=== PATIENT | female | born 1935 | race Caucasian/White ===

== ENCOUNTER 2016-06-19 04:58 | Inpatient (IN) | payer MEDICARE, OTHER ==
--- NOTE | ~2016-06-19 | DS ---
Discharge Summary [facility] [address] [place]. [address] NAME: JESSICA DUEÑAS : 37 STATUS : DIS IN PAT#: [id number] AGE: 80 ADM/REG DATE : 06/19/16 MR#: [id number] REPORT SERV DATE: 06/22/16 DICTATED BY: EDITH SMITH DATE: 06/21/16 REPORT STATUS : Draft TRANSCRIBED BY: MODL DATE: 06/21/16 ADMISSION DATE: 06/19/2016 DISCHARGE DATE: 06/21/2016 HISTORY OF PRESENT ILLNESS: The patient is a 80-year-old female with a history of hypertension and diabetes type 2, who presented to the emergency room with a complaint of nausea and vomiting. Was noted to have positive Hemoccult studies in the emergency room and admitted for further evaluation. For further details, please refer to H and P dictated by Dr. Fletcher on 06/20/2016. HOSPITAL COURSE: Upon admission to the hospital, the patient was admitted under Hospitalist Service. GI was consulted to assist in management. During her hospital course, her symptoms resolved. Her nausea and vomiting resolved. Also, noted that her hemoglobin remained steady, so her Protonix was subsequently discontinued. Status post discontinuation of Protonix, the patient has remained hemodynamically stable with no evidence of further GI bleed. The patient was evaluated by GI and per their evaluation, otherwise, no need for active intervention at this point, and the patient has been cleared from GI perspective for discharge. Given her hemodynamic stability, resolution of presenting complaint, and the patient's eagerness to go home, the patient will be discharged today. Plan has been discussed with the patient, who is agreeable with this plan. DISCHARGE DIAGNOSES: 1. Nausea and vomiting. 2. Hematemesis. 3. Diabetes type 2. 4. Hypertension. 5. Morbid obesity. DISCHARGE EXAM: GENERAL: The patient lying in bed, in no acute distress. Appears stated age. Speaking in full sentences. HEENT: Normocephalic, atraumatic. The patient is edentulous. NECK: Full symmetric. No thyromegaly noted. No JVD present. NECK: Full. CHEST: Nontender to palpation. No scars appreciated. CARDIOVASCULAR: Regular rate and rhythm. S1, S2. No murmurs, rubs, or gallops. LUNGS: Anterior lung banegas clear to auscultation bilaterally. ABDOMEN: Obese. Positive bowel sounds. Nontender. Nondistended. EXTREMITIES: No cyanosis, no clubbing, no edema. NEUROLOGIC: Alert and oriented x3. DISCHARGE MEDICATIONS: Atorvastatin 40 mg p.o. at bedtime, carvedilol 3.125 mg p.o. twice a day, insulin Levemir 30 units subcu at bedtime, insulin aspart 10 units subcu p.r.n. for blood glucose greater than 400, pantoprazole 40 mg p.o. before breakfast, glucagon 1 mg IM p.r.n. fasting blood sugar less than 70, metformin 500 mg p.o. daily, nitroglycerin 0.4 mg sublingual p.r.n., Zofran 4 mg p.o. q.6 hours p.r.n., albuterol inhalation q.4 hours p.r.n. while awake, gabapentin 300 mg p.o. at bedtime, Januvia 100 mg p.o. at breakfast, furosemide Discharge Summary [address] [address] NAME: JESSICA DUEÑAS : 37 STATUS : DIS IN PAT#: [id number] AGE: 80 ADM/REG DATE : 06/19/16 MR#: [id number] REPORT SERV DATE: 06/22/16 DICTATED BY: EDITH SMITH DATE: 06/21/16 REPORT STATUS : Draft TRANSCRIBED BY: EM DATE: 06/21/16 20 mg p.o. daily. IMAGING: Chest CT with contrast, impression, no airspace consolidation, mild cardiomegaly. CT pelvis, no evidence of acute intraabdominal or pelvic pathology. No GI tract obstruction. All contrast reaches rectum. There is sigmoid colonic diverticulosis and left sided colonic diverticulosis without diverticulitis. Moderate aortoiliac atherosclerosis without aneurysm. A splenorenal shunt is present. DISPOSITION: The patient will be discharged back to senior care facility. ACTIVITY: As tolerated. DIET: Diabetic low-salt diet. Greater than 30 minutes was spent on discharge planning, coordination of care, dictation of summary, and medication reconciliation. CINTHYA Edith Smith MD / [id number] CC: Edith Smith MD
--- NOTE | ~2016-06-19 | HP ---
History And Physical [place] [id number] [facility] [place]. [address] NAME: JESSICA DUEÑAS : 37 STATUS : ADM IN [facility]#: [id number] AGE: 80 ADM/REG DATE : 06/19/16 MR#: [id number] REPORT SERV DATE: 06/20/16 DICTATED BY: PAOLA LANGE DATE: 06/19/16 REPORT STATUS : Draft TRANSCRIBED BY: MODL DATE: 06/19/16 DATE OF ADMISSION: 06/19/2016 REASON FOR ADMISSION: Suspected "GI bleed," I have no guaiac. PRIMARY CARE DOCTOR: Appears to be unclear. HISTORY OF PRESENT ILLNESS: This is a 80-year-old female, with known history of diabetes in the past, whose A1c is 7.7, osteoarthritis, obesity. I have no home MAR in front of me. The patient has a surgical history of unclear breast surgery. The patient was recently discharged in September 2015. At that time, had rhabdo, POOL, a fall, likely debility, at that time was on insulin-dependent diabetes medications of Levemir, NovoLog. The patient comes in since Monday with having progressive abdominal pain, positive nausea, positive vomiting, unclear if it is bilious. At one time, subjectively was thought to have had hematemesis per the family, but then the patient adamantly denies that. The patient is unclear why she was thought to have had a GI bleed per the ED physician, may have had a guaiac, unclear if that was positive. The patient states positive chills. No fevers. Positive nausea. Positive vomiting. No diarrhea. Positive chest pain, more in the substernal and right left sternal border. Does seem to worsen after a meal in the past, although her appetite has been suppressed. Does seem to worsen when she lays more supine at home. Now, I see she does have a Hemoccult that was positive here in the emergency department, The patient has mild shortness of breath. PAST MEDICAL HISTORY: See above. PAST SURGICAL HISTORY: See above. ALLERGIES: NO KNOWN DRUG ALLERGIES. SOCIAL HISTORY: Does not drink, do drugs, or do alcohol. HOME MEDICATIONS: See MAR. We will continue what is relevant. I do not have a home MAR in front of me, but apparently in the past, she was on Januvia, Levemir, metformin, Glucotrol, Pepcid 20 b.i.d., Neurontin, Claritin, MiraLAX. FAMILY HISTORY: Hypertension in at least 1 parent. OBJECTIVE: VITAL SIGNS: 143/65, 97.9 temp. She also has 80 pulse, 16 respirations, 93% on History And Physical [address] [address] NAME: JESSICA DUEÑAS : 37 STATUS : ADM IN PAT#: [id number] AGE: 80 ADM/REG DATE : 06/19/16 MR#: [id number] REPORT SERV DATE: 06/20/16 DICTATED BY: PAOLA LANGE DATE: 06/19/16 REPORT STATUS : Draft TRANSCRIBED BY: EM DATE: 06/19/16 room air, now I see it at 89% though. GENERAL: No acute distress. HEENT: PERRLA. No scleral icterus. CARDIOVASCULAR: Regular rate and rhythm. No murmur. RESPIRATORY: Decreased breath sounds bibasilar with some very mild bibasilar crackles. ABDOMEN: Does seem to be obese, mildly distended, some periumbilical abdominal tenderness. No peritoneal signs. No rebound tenderness. EXTREMITIES: About 1+ pitting edema bilaterally. NEURO: She is A and O x4. GCS 15. PSYCH: Mildly anxious. LABS: Hemoglobin is 14.9 and guaiac is positive, 7.1 white count, 155,000 platelets, 3.5 potassium, 32 bicarb, 0.99 creatinine, 13 BUN, 140 sugar, 159 sugar. The patient had an EKG, and it is just normal sinus rhythm, no ischemic ST-T changes. Chest x-ray, I will get a CT. ASSESSMENT: 1. Subjective melena with guaiac positive stool. 2. Chest pain, worsened with supine and after heavy meal. 3. Dysphagia. 4. Chest pain radiating to the back, unclear if that was during hypertension. 5. History of diabetes. 6. History of osteoarthritis. 7. Borderline hypokalemia. PLAN: Admit this patient to myself. We will ask GI to become involved for dysphagia, possible odynophagia. With her chest pain that radiates to the back, we will elucidate with the CTA of the chest. CT abdomen and pelvis regarding his abdominal pain as well. Her hemoglobin is fairly elevated for GI bleed. As a result, I will transfuse if she rapidly drops less than 9 from over 14. We will trend her cardiac enzymes. Thankfully, her first troponin here is negative. I see no ischemic ST-T changes. As a result with the GI bleed, I will not give any aspirin at this time, but will give Lipitor as well as carvedilol low dose in case she bleeds as we would not want to cause any hypotension. We will place her on Protonix 80 IV x1, then Protonix drip after that as that was a continuation from the emergency department. Place on D5LR, n.p.o. except medications and ice chips. All questions were answered. It took well over 60 minutes to do. Reference [employer] and [employer]. Please see the rest of my orders. WSDenise/EM Paola Lange DO / [id number] History And Physical [address] [address] NAME: JESSICA DUEÑAS : 37 STATUS : ADM IN PAT#: [id number] AGE: 80 ADM/REG DATE : 06/19/16 MR#: [id number] REPORT SERV DATE: 06/20/16 DICTATED BY: PAOLA LANGE DATE: 06/19/16 REPORT STATUS : Draft TRANSCRIBED BY: MODL DATE: 06/19/16 CC: Paola Lange DO
[2016-06-19 04:50] LABS: BASOPHILS 0.7 %; BASOPHILS ABSOLUTE 0.05 10/3/uL (0.0-0.16); EOSINOPHILS 2.1 %; EOSINOPHILS ABSOLUTE 0.15 10/3/uL (0.0-0.53); IMMATURE GRANULOCYTES 0.1 %; IMMATURE GRANULOCYTES ABSOLUTE 0.01 10/3/uL (0.0-0.11); LYMPHOCYTES 43.2 %; LYMPHOCYTES ABSOLUTE 3.06 10/3/uL (0.67-4.30); MEAN CORPUSCULAR HEMOGLOB 29.7 pg (26.0-34.0); MEAN CORPUSCULAR VOLUME 92.8 fL (80-100); MEAN PLATELET VOLUME 12.9 fL (9.2-13.0); MONOCYTES 13.4 %; MONOCYTES ABSOLUTE 0.95 10/3/uL (0.21-1.20); NEUTROPHILS 40.5 %; NEUTROPHILS ABSOLUTE 2.87 10/3/uL (2.02-8.40); PLATELET COUNT 155 10/3/uL (150-400); RBC DISTRIBUTION WIDTH 14.1 % (12.0-16.0); WHITE BLOOD CELLS 7.1 10/3/uL (4.5-10.5)
[2016-06-19 04:54] LABS: HEMATOCRIT 46.5 % (36.0-48.0); HEMOGLOBIN 14.9 g/dL (12.0-16.0); MANUAL DIFF NO %; PROTIME (NOT ORD) 13.5 SEC (12.0-14.5); RED CELL COUNT 5.01 10/6/uL (4.0-5.6)
[~2016-06-19 04:58] MED LIST: ARTHRITIS OTC PO; ASPIRIN OTC PO; CLARIT10 PO; GLUCOPHAGE1000 MG PO; GLUCPH PO; GLUCXL10 PO; JANUVIA100 MG PO; LANTUS SC; LANTUSCART SC; MIRALAXPKT PO; MOBIC15 MG PO; NEUR300 PO; OTC EYE DROP OPH; PEP20 PO; TEARS NATURA OPH; VISINE TEARS15 ML OPH
[2016-06-19 05:05] LABS: ALBUMIN 3.2 G/DL (3.5-5.0); BUN (BLOOD UREA NITROGEN) 13 MG/DL (6-23); CALCIUM, SERUM 8.9 MG/DL (8.5-10.4); CREATININE 0.99 MG/DL (0.55-1.02); GFR AFRICAN AMERICAN 63 ML/MIN (>=60); GFR NON AFRICAN AMERICAN 54 ML/MIN (>=60); SGOT(AST) 25 U/L (5-40); SGPT(ALT) 28 U/L (5-65); SODIUM, SERUM 140 MMOL/L (135-148); TOTAL BILIRUBIN 0.5 MG/DL (0-1.2); TROPONIN I <0.02 NG/ML (<0.05)
[2016-06-19 05:10] LABS: A/G RATIO 0.8 (0.7-1.9); ALKALINE PHOSPHATASE 50 U/L (45-117); CHLORIDE, SERUM 97 MMOL/L (96-112); CO2 (CARBON DIOXIDE) 32 MMOL/L (24-34); GLOBULIN 3.8 G/DL (2.5-4.1); GLUCOSE, SERUM 159 MG/DL (60-99); POTASSIUM, SERUM 3.5 MMOL/L (3.5-5.3)
[2016-06-19] MEDS ORDERED: NEUR300 PO (10:14)
[2016-06-19] MEDS ORDERED: GLUCAGON IM (10:15)
[2016-06-19] MEDS ORDERED: JANUVIA100 MG PO (10:15)
[2016-06-19] MEDS ORDERED: L20 PO (10:16)
[2016-06-19] MEDS ORDERED: FORTAMET500 MG PO (10:16)
[2016-06-19] MEDS ORDERED: LEVEMIR SC (10:16)
[2016-06-19] MEDS ORDERED: ZANTAC 150 PO (10:17)
[2016-06-19] MEDS ORDERED: ZOFRAN4 PO (10:17)
[2016-06-19] MEDS ORDERED: NOVOLOG SC (10:17)
[2016-06-19 18:33] LABS: HEMOGLOBIN 13.1 g/dL (12.0-16.0)
[2016-06-19 18:35] LABS: HEMATOCRIT 41.2 % (36.0-48.0)
[2016-06-19 18:51] LABS: B NATRIURETIC PEPTIDE (BNP) 13.7 PG/ML (< 100.0)
[2016-06-19 18:58] LABS: PHOSPHORUS, SERUM 3.1 MG/DL (2.5-4.5); TROPONIN I <0.02 NG/ML (<0.05)
[2016-06-19 19:00] LABS: CPK 134 U/L (0-200)
[2016-06-19 19:44] LABS: PROCALCITONIN <0.05 ng/mL (<0.5)
[2016-06-19 22:06] LABS: CPK 148 U/L (0-200); TROPONIN I <0.02 NG/ML (<0.05)
[2016-06-19 22:08] LABS: CK-MB 3.2 NG/ML
[2016-06-20 01:57] LABS: BASOPHILS 0.6 %; BASOPHILS ABSOLUTE 0.04 10/3/uL (0.0-0.16); EOSINOPHILS 2.5 %; EOSINOPHILS ABSOLUTE 0.17 10/3/uL (0.0-0.53); HEMATOCRIT 43.5 % (36.0-48.0); HEMOGLOBIN 13.9 g/dL (12.0-16.0); IMMATURE GRANULOCYTES 0.1 %; IMMATURE GRANULOCYTES ABSOLUTE 0.01 10/3/uL (0.0-0.11); LYMPHOCYTES 47.9 %; LYMPHOCYTES ABSOLUTE 3.23 10/3/uL (0.67-4.30); MEAN CORPUSCULAR HEMOGLOB 29.8 pg (26.0-34.0); MEAN CORPUSCULAR VOLUME 93.3 fL (80-100); MEAN PLATELET VOLUME 12.9 fL (9.2-13.0); MONOCYTES 10.7 %; MONOCYTES ABSOLUTE 0.72 10/3/uL (0.21-1.20); NEUTROPHILS 38.2 %; NEUTROPHILS ABSOLUTE 2.58 10/3/uL (2.02-8.40); PLATELET COUNT 144 10/3/uL (150-400); RBC DISTRIBUTION WIDTH 14.2 % (12.0-16.0); RED CELL COUNT 4.66 10/6/uL (4.0-5.6); WHITE BLOOD CELLS 6.8 10/3/uL (4.5-10.5)
[2016-06-20 01:58] LABS: HEMATOCRIT 41.3 % (36.0-48.0); HEMOGLOBIN 13.3 g/dL (12.0-16.0)
[2016-06-20 02:01] LABS: MANUAL DIFF NO %
[2016-06-20 02:18] LABS: BUN (BLOOD UREA NITROGEN) 10 MG/DL (6-23); CALCIUM, SERUM 8.3 MG/DL (8.5-10.4); CHLORIDE, SERUM 105 MMOL/L (96-112); CO2 (CARBON DIOXIDE) 29 MMOL/L (24-34); CPK 150 U/L (0-200); GFR AFRICAN AMERICAN 81 ML/MIN (>=60); GFR NON AFRICAN AMERICAN 70 ML/MIN (>=60); GLUCOSE, SERUM 157 MG/DL (60-99); PHOSPHORUS, SERUM 2.7 MG/DL (2.5-4.5); POTASSIUM, SERUM 3.4 MMOL/L (3.5-5.3); SODIUM, SERUM 143 MMOL/L (135-148); TROPONIN I <0.02 NG/ML (<0.05)
[2016-06-20 02:21] LABS: CK-MB 3.1 NG/ML
[2016-06-20 09:17] LABS: HEMATOCRIT 40.6 % (36.0-48.0); HEMOGLOBIN 12.9 g/dL (12.0-16.0)
[2016-06-20 10:50] LABS: GLYCOHEMOGLOBIN (HbA1c) 12.2 % (4.7-6.1)
[2016-06-21 05:18] LABS: BASOPHILS 0.5 %; BASOPHILS ABSOLUTE 0.04 10/3/uL (0.0-0.16); EOSINOPHILS 2.2 %; EOSINOPHILS ABSOLUTE 0.17 10/3/uL (0.0-0.53); HEMOGLOBIN 11.9 g/dL (12.0-16.0); IMMATURE GRANULOCYTES 0.1 %; IMMATURE GRANULOCYTES ABSOLUTE 0.01 10/3/uL (0.0-0.11); LYMPHOCYTES 50.4 %; LYMPHOCYTES ABSOLUTE 3.98 10/3/uL (0.67-4.30); MEAN CORPUS HGB CONC 31.3 g/dL (32.0-36.0); MEAN CORPUSCULAR HEMOGLOB 28.6 pg (26.0-34.0); MEAN CORPUSCULAR VOLUME 91.3 fL (80-100); MEAN PLATELET VOLUME 13.6 fL (9.2-13.0); MONOCYTES 10.8 %; MONOCYTES ABSOLUTE 0.85 10/3/uL (0.21-1.20); NEUTROPHILS ABSOLUTE 2.85 10/3/uL (2.02-8.40); PLATELET COUNT 140 10/3/uL (150-400); RBC DISTRIBUTION WIDTH 14.1 % (12.0-16.0); RED CELL COUNT 4.16 10/6/uL (4.0-5.6); WHITE BLOOD CELLS 7.9 10/3/uL (4.5-10.5)
[2016-06-21 05:19] LABS: MANUAL DIFF NO %
[2016-06-21 05:44] LABS: BUN (BLOOD UREA NITROGEN) 9 MG/DL (6-23); CALCIUM, SERUM 7.9 MG/DL (8.5-10.4); CHLORIDE, SERUM 105 MMOL/L (96-112); CO2 (CARBON DIOXIDE) 27 MMOL/L (24-34); CREATININE 0.97 MG/DL (0.55-1.02); GFR AFRICAN AMERICAN 64 ML/MIN (>=60); GFR NON AFRICAN AMERICAN 56 ML/MIN (>=60); SODIUM, SERUM 142 MMOL/L (135-148)
[2016-06-21 05:51] LABS: GLUCOSE, SERUM 257 MG/DL (60-99); POTASSIUM, SERUM 4.6 MMOL/L (3.5-5.3)
== END 2016-06-21 13:14 | DRG 378 ==
LOC: ER 04:58 → ER/OF 10:32 → 2SO 12:35
PROVIDERS: Internal Medicine; Specialist
DX: K92.0 Hematemesis (principal); Z68.41 Body mass index [BMI] 40.0-44.9, adult; E11.9 Type 2 diabetes mellitus without complications; K21.9 Gastro-esophageal reflux disease without esophagitis; R13.10 Dysphagia, unspecified; M19.90 Unspecified osteoarthritis, unspecified site; E87.6 Hypokalemia; R11.2 Nausea with vomiting, unspecified; I10 Essential (primary) hypertension; E66.01 Morbid (severe) obesity due to excess calories; Z98.890 Other specified postprocedural states
CPT/HCPCS: 36415; 71010; 71260; 74177; 80048; 80053; 82550; 82553; 82962; 83036; 83605; 83735; 83880; 84100; 84145; 84443; 84484; 85014; 85018; 85025; 85610; 85730; 86850; 86900; 86901; 86920; 93005; 96374; 99285; A9270-GY; C9113; J2405

== ENCOUNTER 2016-08-01 09:01 | Emergency (ER) | payer MEDICARE, OTHER ==
[2016-08-01 08:46] LABS: BASOPHILS 0.1 %; BASOPHILS ABSOLUTE 0.01 10/3/uL (0.0-0.16); EOSINOPHILS 0.2 %; EOSINOPHILS ABSOLUTE 0.02 10/3/uL (0.0-0.53); HEMATOCRIT 44.5 % (36.0-48.0); HEMOGLOBIN 14.6 g/dL (12.0-16.0); IMMATURE GRANULOCYTES 0.4 %; IMMATURE GRANULOCYTES ABSOLUTE 0.03 10/3/uL (0.0-0.11); LYMPHOCYTES 25.6 %; LYMPHOCYTES ABSOLUTE 2.06 10/3/uL (0.67-4.30); MANUAL DIFF NO %; MEAN CORPUS HGB CONC 32.8 g/dL (32.0-36.0); MEAN CORPUSCULAR HEMOGLOB 30.5 pg (26.0-34.0); MEAN CORPUSCULAR VOLUME 93.1 fL (80-100); MEAN PLATELET VOLUME 13.3 fL (9.2-13.0); MONOCYTES 10.1 %; MONOCYTES ABSOLUTE 0.81 10/3/uL (0.21-1.20); NEUTROPHILS 63.6 %; NEUTROPHILS ABSOLUTE 5.11 10/3/uL (2.02-8.40); PLATELET COUNT 166 10/3/uL (150-400); RBC DISTRIBUTION WIDTH 13.9 % (12.0-16.0); RED CELL COUNT 4.78 10/6/uL (4.0-5.6)
[2016-08-01 08:53] LABS: INTERNATIONAL NORMAL RATI 1.1 UNITS (-); PARTIAL THROMBO TIME 25.6 SEC (22.5-37.2); PROTIME (NOT ORD) 13.9 SEC (12.0-14.5)
[~2016-08-01 09:01] MED LIST changes: +FORTAMET500 MG PO; +GLUCAGON IM; +L20 PO; +LEVEMIR SC; +NOVOLOG SC; +ZANTAC 150 PO; +ZOFRAN4 PO
[2016-08-01 09:04] LABS: ALKALINE PHOSPHATASE 42 U/L (45-117); CALCIUM, SERUM 8.6 MG/DL (8.5-10.4); CHEST PAIN PROFILE TAT 0 Hrs 22 Mins; CHLORIDE, SERUM 104 MMOL/L (96-112); CO2 (CARBON DIOXIDE) 29 MMOL/L (24-34); CREATININE 0.99 MG/DL (0.55-1.02); DIRECT BILIRUBIN 0.1 MG/DL (0.0-0.4); GFR AFRICAN AMERICAN 63 ML/MIN (>=60); GFR NON AFRICAN AMERICAN 54 ML/MIN (>=60); GLUCOSE, SERUM 258 MG/DL (60-99); INDIRECT BILIRUBIN(NOT ORDER) 0.4 MG/DL (0.1-0.9); SGPT(ALT) 28 U/L (5-65); SODIUM, SERUM 142 MMOL/L (135-148); TOTAL BILIRUBIN 0.5 MG/DL (0-1.2); TOTAL PROTEIN 6.7 G/DL (6.0-8.5); TROPONIN I <0.02 NG/ML (<0.05)
[2016-08-01 09:05] LABS: BUN (BLOOD UREA NITROGEN) 19 MG/DL (6-23)
[2016-08-01 09:06] LABS: SGOT(AST) 28 U/L (5-40)
[2016-08-01 09:42] LABS: ASCORBIC ACID (UR NOT ORDER) NEG (NEG); BILIRUBIN, URINE NEGATIVE (NEG); ER URINALYSIS TAT 0 Hrs 23 Mins; KETONE, URINE NEGATIVE (NEG); LEUKOCYTE ESTERASE(NOT OR SMALL (NEG); WBC (NOT ORDERED) (RFLEX) 40 (0-5)
[2016-08-01 09:43] LABS: NITRITE (URINE) POS (NEG)
== END 2016-08-01 14:40 | disposition home or self-care (01) ==
LOC: ER 09:01
PROVIDERS: Emergency Medicine
DX: N39.0 Urinary tract infection, site not specified (principal); R53.1 Weakness; I95.9 Hypotension, unspecified; I10 Essential (primary) hypertension; K21.9 Gastro-esophageal reflux disease without esophagitis; E11.9 Type 2 diabetes mellitus without complications; Z79.899 Other long term (current) drug therapy; Z79.84 Long term (current) use of oral hypoglycemic drugs; Z79.4 Long term (current) use of insulin
CPT/HCPCS: 80048; 80076; 81001; 83605; 83690; 83735; 84484; 85025; 85610; 85730; 87077; 87086; 87186; 87493; 87493-59; 93005; 96374; 99285; A9270-GY; J2405